=== PATIENT | male | born 1940 | race Caucasian/White ===

== ENCOUNTER 2018-08-13 17:02 | Emergency (ER) | payer MEDICARE ==
[2018-08-13 17:15] VITALS: TEMP 97.4
[2018-08-13] MEDS ORDERED: KETOROLAC 30 MG/ML 1 ML VIAL IM STA (18:00)
--- NOTE | 2018-08-13 18:07 | ED ---
General Adult HPI - General Chief complaint: Extremity Injury, Upper Stated complaint: fall/shoulder pain Time Seen by Provider: 08/13/18 17:20 Source: patient Mode of arrival: ambulatory Limitations: physical limitation - History of Present Illness Initial comments: Patient is a 78-year-old male presenting to emergency Department with trauma to the left shoulder. Patient states that he was walking his dog when it ran into his legs causing him to trip and fall on his left shoulder. Patient reports he fell on concrete but denies loss of consciousness. Patient reports the pain is localized near the acromion and does not radiate. Patient reports difficulty with any motion of the left arm. Patient reports tenderness over the acromion. Patient denies erythema, swallowing, numbness or tingling. Patient reports he went to a local urgent care after the incident who diagnosed him with humeral fracture. Patient denies taking any medication to alleviate the pain. - Related Data Home Medications Medication Instructions Recorded Confirmed Cholecalciferol (Vitamin D3) 2,000 unit PO DAILY 08/13/18 08/13/18 [Vitamin D3] Cyanocobalamin (Vitamin B-12) 1,000 mcg PO DAILY 08/13/18 08/13/18 [Vitamin B-12] Multivitamins, Thera [Multivitamin 1 tab PO DAILY 08/13/18 08/13/18 (formulary)] Ubidecarenone [Co Q-10] 100 mg PO DAILY 08/13/18 08/13/18 Zinc 50 mg PO DAILY 08/13/18 08/13/18 Allergies Allergy/AdvReac Type Severity Reaction Status Date / Time No Known Allergies Allergy Verified 08/13/18 17:47 Review of Systems ROS Statement: Those systems with pertinent positive or pertinent negative responses have been documented in the HPI. ROS Other: All systems not noted in ROS Statement are negative. Past Medical History Past Medical History: No Reported History History of Any Multi-Drug Resistant Organisms: None Reported Past Surgical History: Hernia Repair Past Psychological History: No Psychological Hx Reported Smoking Status: Never smoker Past Alcohol Use History: Occasional Past Drug Use History: None Reported General Exam Limitations: physical limitation General appearance: alert, in no apparent distress Head exam: Present: atraumatic, normocephalic, normal inspection Eye exam: Present: normal appearance ENT exam: Present: normal exam Neck exam: Present: normal inspection, full ROM. Absent: tenderness, lymphadenopathy Respiratory exam: Present: normal lung sounds bilaterally Cardiovascular Exam: Present: regular rate, normal rhythm, normal heart sounds Left Shoulder Exam: Present: normal inspection, tenderness. Absent: full ROM (Complete limitation due to pain.), abrasion, laceration, ecchymosis, crepitus, erythema Upper Arm exam: Present: normal inspection, full ROM Elbow exam: Present: normal inspection, full ROM Forearm Wrist exam: Present: normal inspection, full ROM Hand Wrist exam: Present: normal inspection, full ROM Vascular: Present: normal capillary refill, radial pulse, ulnar pulse Back exam: Present: normal inspection. Absent: CVA tenderness (R), CVA tend erness (L) Neurological exam: Present: alert, oriented X3 Psychiatric exam: Present: normal affect, normal mood Skin exam: Present: warm, normal color Course Vital Signs 08/13/18 17:11 Temperature 97.4 F L Pulse Rate 88 Respiratory 18 Rate Blood Pressure 152/86 O2 Sat by Pulse 96 Oximetry Medical Decision Making - Medical Decision Making Patient is a 78-year-old male presents emergency Department with left shoulder injury. Patient was given Toradol for pain. Left shoulder x-ray was obtained and is suggestive of an acute humeral neck fracture, as well as a large chip fracture on the greater tuberosity with some displacement. Patient was given a sling. Patient advised to follow-up with orthopedics. Patient advised to return to emergency department if symptoms worsen. Case discussed with jasiel anna. Disposition Clinical Impression: Humeral surgical neck fracture Disposition: HOME SELF-CARE Condition: Stable Instructions (If sedation given, give patient instructions): ORIF (DC) Additional Instructions: Please follow with orthopedics. Alternate between Tylenol and ibuprofen for pain control. Please return to emergency department if symptoms worsen. Is patient prescribed a controlled substance at d/c from ED?: No Referrals: Alina Zamora MD [Primary Care Provider] - 1-2 days Fahad Worthy MD [Medical Doctor] - 1-2 days Time of Disposition: 19:07
--- NOTE | 2018-08-13 18:26 | XR ---
EXAMINATION TYPE: XR shoulder complete LT DATE OF EXAM: 08/13/2018 COMPARISON: NONE HISTORY: Fall. Shoulder pain. TECHNIQUE: 3 views. FINDINGS: There is 4.5 x 3.5 cm bony density at the greater tuberosity consistent with a large displaced chip fracture. There is probably impacted humeral neck fracture. There is no dislocation. The scapula appe ars intact. AC joint is intact. IMPRESSION: There is likely impacted acute humeral neck fracture. Large chip fracture of the greater tuberosity with some displacement. The greater tuberosity fracture age is not clear.
[2018-08-13 19:32] VITALS: BP 149/72; PULSE 77; RESP 16
== END 2018-08-13 19:31 | disposition home or self-care (01) ==
LOC: EC 17:02
DX: S42.212A Unspecified displaced fracture of surgical neck of left humerus, initial encounter for closed fracture (principal); W01.0XXA Fall on same level from slipping, tripping and stumbling without subsequent striking against object, initial encounter; Y93.K1 Activity, walking an animal
CPT/HCPCS: 73030; 99283; 96372; J1885

== ENCOUNTER → 2018-08-18 | Outpatient (CLI) | payer MEDICARE ==
--- NOTE | 2018-08-18 13:53 | CT ---
EXAMINATION TYPE: CT shoulder LT wo con DATE OF EXAM: 08/18/2018 COMPARISON: Left shoulder x-ray August 13, 2018. HISTORY: Fall with Left injury. Left shoulder pain with known displaced fracture of greater tuberosi ty CT DLP: 506.7 mGycm Automated exposure control for dose reduction was used. FINDINGS: There is redemonstration of comminuted displaced fracture through surgical neck and femoral head of l eft proximal femur. There is large bony fragment posteriorly laterally measuring roughly 3.4 x 2.9 cm involving the greater tuberosity. Glenohumeral joint shows mild to moderate narrowing inferiorly wit hout visualization of intra-articular bony fragments. Fracture line extends medially towards the post erior margin of the glenohumeral joint axial image 22 for reference. Acromioclavicular joint shows mo derate narrowing and capsular hypertrophy without bony fragmentation. Type II downsloping acromion is seen. Visualized left lung is clear. Visualized ribs are intact. Demineralization is present. IMPRESSION: As above.
== END | disposition home or self-care (01) ==
LOC: RADCTMAIN 13:10
PROVIDERS: ATTEND Orthopaedic Surgery
DX: S42.302A Unspecified fracture of shaft of humerus, left arm, initial encounter for closed fracture (principal); M25.812 Other specified joint disorders, left shoulder; S42.252A Displaced fracture of greater tuberosity of left humerus, initial encounter for closed fracture; M25.512 Pain in left shoulder
CPT/HCPCS: 82306